=== PATIENT | male | born 1995 | race Caucasian/White ===

== ENCOUNTER 2017-06-17 17:46 | Emergency (ER) | payer SELFPAY ==
[~2017-06-17] VITALS: Ht 177.8 cm; Wt 100.0 kg
[2017-06-17 17:49] VITALS: BP 138/88
== END 2017-06-17 21:12 | disposition left against medical advice (07) ==
LOC: ER 18:07
DX: Z53.21 Procedure and treatment not carried out due to patient leaving prior to being seen by health care provider (principal)